=== PATIENT | female | born 1940 | race Caucasian/White ===

== ENCOUNTER 2016-12-06 09:24 | Observation (INO) ==
--- NOTE | 2016-12-06 09:31 | Emergency Department Note ---
Disposition Clinical Impression: Heart palpitations Chest pain Qualifiers: Chest pain type: precordial pain Qualified Code(s): R07.2 - Precordial pain Disposition: Admitted As Inpatient Condition: Good Referrals: Chandrakant Devi DO [Primary Care Provider] - Forms: ED Satisfaction Letter Chest Pain HPI - General Chief Complaint: ED Chest Pain Stated Complaint: chest pressure with SOB Time Seen by Provider: 12/06/16 09:29 Source: patient, EMS Mode of arrival: EMS Limitations: no limitations Vital Signs Reviewed: Yes Nursing Notes Reviewed: Yes - History of Present Illness HPI Narrative: Patient states she had onset of an ache in her chest with palpitations this morning approximately about 6:30. She states her chest discomfort was an ache that did not radiate. She did report some slight nausea and no diaphoresis or radiation of discomfort. She denies history of similar pain in the past. She states it went away with application of oxygen and administration of aspirin by EMS. She denies any lower extremity swelling, immobilization or injury. She denies that anything seemed to make this better or worse. She states she felt normal going to bed last night and that she has had normal activity and normal medications. She does have a history of a pacemaker and has had history of coronary artery disease. Pt complaint: chest pain, other (Palpitations) Onset (ago): hour(s) Time: 07:30 Duration: now resolved Onset: during rest Pain Location: left chest Severity: moderate Severity scale (1-10): 0 Quality: aching Pain Radiation: none Improves with: nothing Worsens with: nothing Associated symptoms: Reports: nausea ("Slight"), dyspnea, palpitations. Denies : vomiting, diaphoresis, syncope, fever, cough, leg swelling Treatments prior to arrival chest pain: aspirin, oxygen - Related Data Home Medications Medication Instructions Recorded Confirmed Metoprolol [Lopressor] 25 mg PO BID 01/11/15 12/06/16 Budesonide/Formoterol 160/4.5 1 puff IH BIDR PRN 04/06/15 12/06/16 [Symbicort] Clopidogrel [Plavix] 75 mg PO DAILY 04/06/15 12/06/16 hydroCHLOROthiazide 25 mg PO DAILY 04/06/15 12/06/16 [Hydrochlorothiazide] Amlodipine Besylate 10 mg PO DAILY 10/31/15 12/06/16 Ginkgo Biloba 60 mg PO DAILY 10/31/15 12/06/16 Oxybutynin [Ditropan] 5 mg PO BID 10/31/15 12/06/16 Albuterol Sulfate [Albuterol 1 puff IH QID PRN 12/21/15 12/06/16 Inhaler] Naproxen [Naprosyn] 500 mg PO BID PRN 12/06/16 12/06/16 Previous Rx's Medication Instructions Recorded Aspirin 162 mg PO DAILY 365 Days 11/01/15 Atorvastatin [Lipitor] 40 mg PO HS #30 tablet 11/01/15 Isosorbide MONOnitrate (24 HR) 120 mg PO DAILY 365 Days 11/01/15 [Imdur] Nitroglycerin [Nitrostat] 0.4 mg SL Q5M PRN #1 vial 11/01/15 Allergies Allergy/AdvReac Type Severity Reaction Status Date / Time lisinopril Allergy Cough Verified 12/06/16 09:25 All systems ED: reviewed and negative except as stated. 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 Absent: scleral icterus, conjunctival injection - ENT ENT exam: normal exam, normal oropharynx, mucous membranes moist - Neck Neck exam: Present: normal inspection, full ROM, trachea midline - Chest Chest inspection: Present: normal inspection, symmetric chest wall rise - Respiratory Respiratory exam: Present: normal lung sounds bilaterally. Absent: respiratory distress, wheezes, prolonged expiratory phase - Cardiovascular Cardiovascular exam: Present: regular rate, normal rhythm, normal heart sounds. Absent: tachycardia - Abdominal Exam Abdominal exam: Present: soft, Non-Tender, normal bowel sounds. Absent: tenderness, distention, guarding, rebound, rigidity - Extremities Exam Extremities exam: Present: normal inspection, full ROM, normal capillary refill. Absent: tenderness, pedal edema - Expanded Lower Extremity Exam Neurovascular/Tendon exam: Present: normal capillary refill. Absent: motor deficit, sensory deficit, tendon deficit Gait: observed and normal - Back Exam Back exam: Present: normal inspection, full ROM. Absent: tenderness, CVA tenderness (R), CVA tenderness (L), vertebral tenderness - Neurological Exam Neurological exam: Present: alert, oriented X3 - Psychiatric Psychiatric exam: Present: normal affect, normal mood. Absent: agitated, anxious - Skin Skin exam: Present: warm, dry, intact, normal color. Absent: rash, diaphoresis , pallor Course Course Narrative: 1052: Patient's presentation and evaluation have been discussed with Dr. Beal. He would like us to consult to [facility] cardiology as the recommendations for interrogation of the pacer. If they feel that these done more urgently than he would request for transfer to [facility]. If it can be done electively later, he is comfortable observing care here with serial troponins and monitoring. 1131: Dr. Disla of [facility] cardiology has returned page. She feels the patient can be observed at our facility with serial troponins. She states that the pacer could be checked in the office of the troponins are negative but she would recommend contacting the device company, [employer], at to see if this can be interrogated today. We have contacted to the company and they will be able to evaluate the pacer later this afternoon. The patient will be admitted therefore to this facility. Vital Signs Temperature 97.3 F L 12/06/16 09:26 Pulse Rate 60 12/06/16 09:26 Respiratory Rate 21 12/06/16 09:26 Blood Pressure 151/82 12/06/16 09:26 O2 Sat by Pulse Oximetry 97 12/06/16 09:26 Temperature 97.3 F L 12/06/16 09:28 Pulse Rate 60 12/06/16 11:37 Respiratory Rate 17 12/06/16 11:37 Blood Pressure 139/67 12/06/16 11:37 O2 Sat by Pulse Oximetry 99 12/06/16 11:37 Oxygen Delivery Oxygen Delivery Nasal Cannula Chest Pain - Differential Diagnosis Likely: atypical chest pain, chest pain (Dysrhythmia) - Medical Records Medical records reviewed: Yes I reviewed the patient's medical records. - Lab Data Lab results reviewed: Yes I reviewed the patient's lab results. Result diagrams: 12/06/16 09:40 12/06/16 09:40 Lab Results 12/06/16 12/06/16 12/06/16 Range/Units 09:40 09:40 09:40 WBC 6.0 (4.3-11.1) K/mcL RBC 5.16 H (3.82-4.97) M/mcL Hgb 15.3 (11.5-15.4) g/dL Hct 43.2 (35.3-44.9) % MCV 83.7 (83.0-100.0) fL MCH 29.7 (28.0-33.3) pg MCHC 35.4 (31.6-35.5) g/dL RDW 12.5 (11.5-14.5) % Plt Count 194 (140-400) K/mcL MPV 9.1 L (9.4-12.4) fL Immature Gran % 0.3 (0-4) % Seg Neutrophils % 47.9 % Lymphocytes % 41.7 % Monocytes % 5.7 % Eosinophils % 3.2 % Basophils % 1.2 % Neutrophils # 2.9 (1.6-8.9) K/mcL Lymphocytes # 2.5 (0.6-4.6) K/mcL Monocytes # 0.3 (0.0-1.3) K/mcL Eosinophils # 0.2 (0.0-0.6) K/mcL Basophils # 0.1 (0.0-0.2) K/mcL PT 11.3 (9.4-12.1) Seconds INR 1.1 APTT 29.9 (26.0-36.0) Seconds Sodium (136-145) mEq/L Potassium (3.5-4.5) mEq/L Chloride (98-109) mEq/L Carbon Dioxide (19-29) mEq/L BUN (7-20) mg/dL Creatinine (0.57-1.11) mg/dL Est GFR ( Amer) (> 60) Est GFR (Non-Af Amer) (> 60) BUN/Creatinine Ratio (6-26) Glucose (70-99) mg/dL Calculated Osmolality (280-300) Calcium (8.6-10.8) mg/dL Troponin I (0-0.03) ng/mL B-Natriuretic Peptide 134 H (0-100) pg/mL 12/06/16 12/06/16 Range/Units 09:40 09:40 WBC (4.3-11.1) K/mcL RBC (3.82-4.97) M/mcL Hgb (11.5-15.4) g/dL Hct (35.3-44.9) % MCV (83.0-100.0) fL MCH (28.0-33.3) pg MCHC (31.6-35.5) g/dL RDW (11.5-14.5) % Plt Count (140-400) K/mcL MPV (9.4-12.4) fL Immature Gran % (0-4) % Seg Neutrophils % % Lymphocytes % % Monocytes % % Eosinophils % % Basophils % % Neutrophils # (1.6-8.9) K/mcL Lymphocytes # (0.6-4.6) K/mcL Monocytes # (0.0-1.3) K/mcL Eosinophils # (0.0-0.6) K/mcL Basophils # (0.0-0.2) K/mcL PT (9.4-12.1) Seconds INR APTT (26.0-36.0) Seconds Sodium 140 (136-145) mEq/L Potassium 3.1 L (3.5-4.5) mEq/L Chloride 100 (98-109) mEq/L Carbon Dioxide 26 (19-29) mEq/L BUN 12 (7-20) mg/dL Creatinine 0.86 (0.57-1.11) mg/dL Est GFR ( Amer) > 60 (> 60) Est GFR (Non-Af Amer) > 60 (> 60) BUN/Creatinine Ratio 14 (6-26) Glucose 141 H (70-99) mg/dL Calculated Osmolality 292 (280-300) Calcium 9.5 (8.6-10.8) mg/dL Troponin I 0.01 (0-0.03) ng/mL B-Natriuretic Peptide (0-100) pg/mL - Radiology Data Radiology results reviewed: Yes I reviewed the patient's radiology results. Single view chest x-ray is performed. This does not demonstrate evidence for infiltrate, effusion, pneumothorax, foreign body or heart failure. The cardiac silhouette is only enlarged. Pacer and pacer wires appear to be intact. I do not see abnormality to the osseous structures of the chest. This is on my interpretation. Impressions Chest X-Ray 12/06/16 09:29 IMPRESSION: Stable borderline cardiomegaly. Stable minimal pulmonary vascular congestion. D/ / Brooks Sands MD / Brooks Sands MD Interpreting Provider: Brooks Sands MD - EKG Data EKG attestation: Yes I reviewed and interpreted this EKG. EKG shows normal: intervals Rate: normal (60) Interpretation: no acute changes (Paced rhythm, atrial ventricular) Heart Score - Score History: Moderately Suspicious EKG: Normal Age: Greater than 65 Risk Factors: Equal/Greater than 3 risk factor or history of atherosclerotic disease Troponin: Less than normal limit HEART Score Total: 5
[2016-12-06 09:50] LABS: Basophils # 0.1 K/mcL (0.0-0.2); Basophils % 1.2 %; Eosinophils # 0.2 K/mcL (0.0-0.6); Eosinophils % 3.2 %; Hematocrit 43.2 % (35.3-44.9); Hemoglobin 15.3 g/dL (11.5-15.4); Immature Granulocytes % 0.3 % (0-4); Lymphocytes # 2.5 K/mcL (0.6-4.6); Lymphocytes % 41.7 %; Mean Corpuscular HGB Conc 35.4 g/dL (31.6-35.5); Mean Corpuscular Hemoglobin 29.7 pg (28.0-33.3); Mean Corpuscular Volume 83.7 fL (83.0-100.0); Mean Platelet Volume 9.1 fL (9.4-12.4); Monocytes # 0.3 K/mcL (0.0-1.3); Monocytes % 5.7 %; Neutrophils # 2.9 K/mcL (1.6-8.9); Platelet Count 194 K/mcL (140-400); Red Blood Count 5.16 M/mcL (3.82-4.97); Red Cell Distribution Width 12.5 % (11.5-14.5); Segmented Neutrophils % 47.9 %
[2016-12-06 09:57] LABS: INR 1.1; Prothrombin Time 11.3 Seconds (9.4-12.1)
[2016-12-06 10:00] LABS: Activated Partial Thrombo Time 29.9 Seconds (26.0-36.0)
[2016-12-06 10:06] LABS: BUN/Creatinine Ratio 14 (6-26); Blood Urea Nitrogen 12 mg/dL (7-20); Calcium 9.5 mg/dL (8.6-10.8); Carbon Dioxide 26 mEq/L (19-29); Chloride 100 mEq/L (98-109); Glucose 141 mg/dL (70-99); Osmolality,Calculated 292 (280-300); Potassium 3.1 mEq/L (3.5-4.5); Sodium 140 mEq/L (136-145); eGFR For African Americans > 60 (> 60); eGFR For Non-African Americans > 60 (> 60)
--- NOTE | 2016-12-06 13:17 | Electrocardiograph Report ---
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
[2016-12-06] MEDS ORDERED: Nitroglycerin 0.4 MG TAB.SUBL SL PRN (13:28)
[2016-12-06] MEDS ORDERED: Naloxone 0.4 MG/ML INJ IVP PRN (13:28)
[2016-12-06] MEDS ORDERED: Ondansetron 4 MG/2 ML VIAL IVP PRN (13:28)
[2016-12-06] MEDS ORDERED: Budesonide/Formoterol 160/4.5 MDI IH PRN (13:28)
[2016-12-06 14:03] VITALS: BP 158/79
--- NOTE | 2016-12-06 15:40 | Internal Med History&Physical ---
Date of Encounter: 12/06/16 Time of Encounter: 15:05 Assessment and Plan (1) Chest pain Current visit: No Status: Acute Repeat cardiac enzymes showed a rise in troponin to 0.05. Patient still having mild chest discomfort. She is agreeable to transfer to [place] for further evaluation. Qualifiers: Chest pain type: chest pain due to myocardial ischemia Qualified Code(s): I20.9 - Angina pectoris, unspecified Internal Medicine - H&P: HPI Chief complaint: Chest pain Admitted From: Home Plans for Post Hospital Care: Home History of present illness: Ms. Valdes is a 75 year old female who states she developed discomfort in her chest approximately 0630 after rising while at leisure in her home. She describes it as a pressure sensation in her left chest that seemed to radiate toward her neck. Her daughter came to the house approximated 0800 and gave her a nitroglycerin pill which seemed to relieve the pain. The squad had already been called by the patient and she received aspirin by squad members. She was brought to emergency room and evaluated and admitted to [facility] for ongoing care needs. She states she still having some discomfort in her chest at the present time. She rates it a level 1-2/10 at present. She has known ASHD with three-vessel CABG in 1992. She had 4 stents placed at [facility] December/January 2016. She has not had discomfort since the stents were placed. Her last follow-up at [place] was August 2016. She has not had a stress test since stent placement. She has not had known [place] heart failure DVT or pulmonary embolus. She had a pacemaker placed 2006. She has a history of hypertension. LVEF on April 2015 heart catheter was 65%. Past Med Surg Social Fam HX - Past Medical History Medical history: arthritis, COPD, coronary artery disease, dementia, hypertension, thyroid disease Psychiatric history: no psych history - Past Surgical History Surgical History: coronary bypass (CABG), knee replacement, pacemaker/AICD - Social History Smoking Status: Never smoker Smokeless Tobacco Status: No Alcohol use: none Drug use: none - Family History Son Living Status: Hx Family Cardiac Disorders: Yes Internal Medicine - H&P: Meds Metoprolol [Lopressor] 25 mg PO BID 01/11/15 [History] Budesonide/Formoterol 160/4.5 [Symbicort] 1 puff IH BIDR PRN 04/06/15 [History] Clopidogrel [Plavix] 75 mg PO DAILY 04/06/15 [History] hydroCHLOROthiazide [Hydrochlorothiazide] 25 mg PO DAILY 04/06/15 [History] Amlodipine Besylate 10 mg PO DAILY 10/31/15 [History] Ginkgo Biloba 60 mg PO DAILY 10/31/15 [History] Oxybutynin [Ditropan] 5 mg PO BID 10/31/15 [History] Aspirin 162 mg PO DAILY 365 Days 11/01/15 [Rx] Atorvastatin [Lipitor] 40 mg PO HS #30 tablet 11/01/15 [Rx] Isosorbide MONOnitrate (24 HR) [Imdur] 120 mg PO DAILY 365 Days 11/01/15 [Rx] Nitroglycerin [Nitrostat] 0.4 mg SL Q5M PRN #1 vial 11/01/15 [Rx] Albuterol Sulfate [Albuterol Inhaler] 1 puff IH QID PRN 12/21/15 [History] Naproxen [Naprosyn] 500 mg PO BID PRN 12/06/16 [History] Allergies lisinopril Allergy (Verified 12/06/16 09:25) Cough All Systems PM: A 10-system review of systems was performed and is negative for pertinent findings except as documented above in the HPI. Review of systems: Gen.: Her weight has increased from 68 kg at the October 2015 hospitalization a 74.843 kg now. Cardiovascular: As per history of present illness Respiratory: She smoked from her late 20s into her 30s. She has a diagnosis of COPD and has been prescribed oxygen to wear at bedtime. She has been diagnosed with ERIKA but does not wear CPAP/BiPAP. GI: There is no known disorder with her liver gallbladder or exocrine pancreas. : She has OAB. She she had acute renal insufficiency in the past which has resolved. Neurologic: She has a diagnosis of dementia but no known large distribution strokes or seizures. Endocrine: She has hypothyroidism and hyperlipidemia but no known diabetes Hematology/oncology: She has no known blood disorders cancers or anemia. Psychiatric: She has no known anxiety depression or other mental health issues. [place] skeletal: She has DJD but no known gout or osteoporosis. - Constitutional Vitals: Temp Pulse Resp BP Pulse Ox 97.5 F L 63 18 158/79 98 12/06/16 13:45 12/06/16 13:45 12/06/16 13:45 12/06/16 13:45 12/06/16 13:45 Exam: Gen.: She is a well-developed well-nourished female who appears in no severe distress at present time HEENT: Head is atraumatic and normocephalic. Eyes: EOMI. There is no scleral icterus. Mouth: Mucosa is moist. Neck: Supple and nontender. There is no thyromegaly or adenopathy noted. Heart: Regular without murmurs gallops or ectopics Lungs: No wheezes or crackles are heard. Abdomen: Soft and nontender. No masses or guarding are noted. Extremities: There is no cyanosis edema or clubbing noted. Dorsalis pedis and posterior tibial pulses are trace palpable bilaterally. Neurologic: Mental status: She is talkative and seems to be a fair to good historian. Cranial nerves: Smile is symmetric. Forehead wrinkles bilaterally. Tongue protrudes midline. EOMI. Motor: There is no pronator drift. Cerebellar: Finger to nose is intact bilaterally. Skin: Warm and dry Internal Med - H&P Results - Labs CBC & Chem 7: 12/06/16 09:40 12/06/16 09:40 Labs: Cardiac Enzymes 12/06/16 Range/Units 13:42 Troponin I 0.05 H* (0-0.03) ng/mL
--- NOTE | 2016-12-06 15:48 | Discharge Summary ---
Date of Encounter: 12/06/16 Time of Encounter: 15:05 - Discharge Diagnosis (1) Chest pain Priority: Primary Status: Acute Qualifiers: Chest pain type: chest pain due to myocardial ischemia Qualified Code(s): I20.9 - Angina pectoris, unspecified - Discharge Medications Home Medications: Metoprolol [Lopressor] 25 mg PO BID 01/11/15 [History] Budesonide/Formoterol 160/4.5 [Symbicort] 1 puff IH BIDR PRN 04/06/15 [History] Clopidogrel [Plavix] 75 mg PO DAILY 04/06/15 [History] hydroCHLOROthiazide [Hydrochlorothiazide] 25 mg PO DAILY 04/06/15 [History] Amlodipine Besylate 10 mg PO DAILY 10/31/15 [History] Ginkgo Biloba 60 mg PO DAILY 10/31/15 [History] Oxybutynin [Ditropan] 5 mg PO BID 10/31/15 [History] Aspirin 162 mg PO DAILY 365 Days 11/01/15 [Rx] Atorvastatin [Lipitor] 40 mg PO HS #30 tablet 11/01/15 [Rx] Isosorbide MONOnitrate (24 HR) [Imdur] 120 mg PO DAILY 365 Days 11/01/15 [Rx] Nitroglycerin [Nitrostat] 0.4 mg SL Q5M PRN #1 vial 11/01/15 [Rx] Albuterol Sulfate [Albuterol Inhaler] 1 puff IH QID PRN 12/21/15 [History] Naproxen [Naprosyn] 500 mg PO BID PRN 12/06/16 [History] Allergies/Adverse Reactions: Allergies lisinopril Allergy (Verified 12/06/16 09:25) Cough Date of admission: 12/06/16 12:15 Primary care physician: Chandrakant Devi DO - Patient Status Disposition: Transfer Other Condition: Good - Discharge Instructions Hospital course: Ms. Valdes is a 75 year old female who states she developed discomfort in her chest approximately 0630 after rising while at leisure in her home. She describes it as a pressure sensation in her left chest that seemed to radiate toward her neck. Her daughter came to the house approximated 0800 and gave her a nitroglycerin pill which seemed to relieve the pain. The squad had already been called by the patient and she received aspirin by squad members. She was brought to emergency room and evaluated and admitted to [facility] for ongoing care needs. Initial orders were written by the emergency room physician. I saw her the afternoon of December 06 and performed a history and physical. When I saw her her she stated she was still having some discomfort in her chest. Her troponin abby to 0.05 on repeat labs. I told the patient she needed further cardiac evaluation with probable repeat heart cath. She was agreeable to transfer to [place] for further evaluation. - Time Spent with Patient Total time spent providing and/or coordinating discharge services: - Constitutional Vitals: Temp Pulse Resp BP Pulse Ox 97.5 F L 63 18 158/79 98 12/06/16 13:45 12/06/16 13:45 12/06/16 13:45 12/06/16 13:45 12/06/16 13:45
[2016-12-06] MEDS ORDERED: *HR* Heparin 5,000 UNIT/ML VIAL IVP ONE (15:55)
[2016-12-06] MEDS ORDERED: *HR* Heparin 5,000 UNIT/ML VIAL IVP PRN ×2 (15:55)
[2016-12-06] MEDS ORDERED: Heparin 25,000 UNIT/500 ML D5W 25,000 UNIT/500 ML MLS IVC SCH (16:00)
[2016-12-06] MEDS ORDERED: Acetaminophen 325 MG TABLET PO PRN (18:00)
[2016-12-07] MEDS ORDERED: hydroCHLOROthiazide 25 MG TABLET PO SCH (09:00)
[2016-12-07] MEDS ORDERED: Aspirin 81 MG TAB.CHEW PO SCH (09:00)
[2016-12-07] MEDS ORDERED: amLODIPine 5 MG TABLET PO SCH (09:00)
[2016-12-07] MEDS ORDERED: Isosorbide MONOnitrate (24 HR) 60 MG TAB.ER.24H PO SCH (09:00)
== END 2016-12-06 17:25 | disposition other institution (70) ==
LOC: INPPIK 09:24 → EMEROOPIK 09:24 → INPPIK 13:04
PROVIDERS: ADMIT Emergency Medicine; ATTEND Internal Medicine

== ENCOUNTER 2019-05-07 11:28 | Inpatient (IN) ==
[2019-05-07 12:34] LABS: Basophils # 0.1 K/mcL (0.0-0.2); Basophils % 0.9 %; Eosinophils # 0.1 K/mcL (0.0-0.6); Eosinophils % 1.3 %; Hematocrit 41.4 % (35.3-44.9); Hemoglobin 14.9 g/dL (11.5-15.4); Immature Granulocytes % 0.3 % (0-4); Lymphocytes # 2.1 K/mcL (0.6-4.6); Lymphocytes % 30.3 %; Mean Corpuscular Hemoglobin 29.6 pg (28.0-33.3); Mean Corpuscular Volume 82.1 fL (83.0-100.0); Mean Platelet Volume 9.4 fL (9.4-12.4); Monocytes # 0.6 K/mcL (0.0-1.3); Monocytes % 9.2 %; Neutrophils # 3.9 K/mcL (1.6-8.9); Platelet Count 249 K/mcL (140-400); Red Blood Count 5.04 M/mcL (3.82-4.97); Red Cell Distribution Width 12.7 % (11.5-14.5); White Blood Count 6.8 K/mcL (4.3-11.1)
[2019-05-07 12:40] LABS: INR 1.2; Prothrombin Time 13.5 Seconds (9.4-12.1)
[2019-05-07 13:03] LABS: Alanine Aminotransferase 10 Units/L (7-52); Albumin 3.9 g/dL (3.5-5.7); Albumin/Globulin Ratio 1.3 (1.1-2.2); Alkaline Phosphatase 67 Units/L (34-104); Aspartate Amino Transferase 18 Units/L (13-39); BUN/Creatinine Ratio 14 (6-26); Blood Urea Nitrogen 11 mg/dL (8-23); Calcium 9.1 mg/dL (8.6-10.3); Carbon Dioxide 34 mEq/L (23-29); Chloride 92 mEq/L (98-107); Globulin 2.9 g/dL (2.4-3.5); Glucose 100 mg/dL (70-105); Osmolality,Calculated 283 (280-300); Potassium 2.2 mEq/L (3.5-5.1); Sodium 137 mEq/L (136-145); Total Protein 6.8 g/dL (6.4-8.9); eGFR For African Americans > 60 (> 60); eGFR For Non-African Americans > 60 (> 60)
[2019-05-07] MEDS ORDERED: Potassium Effervescent 25 MEQ TABLET.EFF PO ONE (13:06)
[2019-05-07] MEDS ORDERED: 0.9 % Sodium Chloride 1,000 ML IVC STA (13:18)
[2019-05-07] MEDS ORDERED: Naloxone 0.4 MG/ML INJ IVP PRN (16:20)
[2019-05-07] MEDS ORDERED: Ondansetron ODT 4 MG TAB.RAPDIS SL PRN (16:20)
[2019-05-07 18:05] LABS: Hemoglobin 12.9 g/dL (11.5-15.4)
[2019-05-07 18:51] LABS: BUN/Creatinine Ratio 16 (6-26); Blood Urea Nitrogen 11 mg/dL (8-23); Calcium 8.4 mg/dL (8.6-10.3); Carbon Dioxide 33 mEq/L (23-29); Chloride 94 mEq/L (98-107); Glucose 93 mg/dL (70-105); Osmolality,Calculated 281 (280-300); Potassium 2.7 mEq/L (3.5-5.1); Sodium 136 mEq/L (136-145); eGFR For African Americans > 60 (> 60); eGFR For Non-African Americans > 60 (> 60)
[2019-05-07] MEDS: 0.9 % Sodium Chloride 1,000 ML IVC SCH ×2 (22:58→23:32)
[2019-05-08 02:02] LABS: Hematocrit 35.8 % (35.3-44.9); Hemoglobin 12.7 g/dL (11.5-15.4)
[2019-05-08 06:49] LABS: Basophils # 0.1 K/mcL (0.0-0.2); Basophils % 1.1 %; Eosinophils # 0.2 K/mcL (0.0-0.6); Eosinophils % 2.8 %; Hematocrit 37.2 % (35.3-44.9); Hemoglobin 13.1 g/dL (11.5-15.4); Immature Granulocytes % 0.2 % (0-4); Lymphocytes # 2.1 K/mcL (0.6-4.6); Lymphocytes % 36.1 %; Mean Corpuscular HGB Conc 35.2 g/dL (31.6-35.5); Mean Corpuscular Hemoglobin 29.4 pg (28.0-33.3); Mean Corpuscular Volume 83.4 fL (83.0-100.0); Mean Platelet Volume 9.6 fL (9.4-12.4); Monocytes # 0.6 K/mcL (0.0-1.3); Neutrophils # 2.9 K/mcL (1.6-8.9); Platelet Count 217 K/mcL (140-400); Red Blood Count 4.46 M/mcL (3.82-4.97); Red Cell Distribution Width 12.9 % (11.5-14.5); Segmented Neutrophils % 49.8 %; White Blood Count 5.7 K/mcL (4.3-11.1)
[2019-05-08 06:57] LABS: BUN/Creatinine Ratio 11 (6-26); Blood Urea Nitrogen 7 mg/dL (8-23); Calcium 8.3 mg/dL (8.6-10.3); Carbon Dioxide 32 mEq/L (23-29); Chloride 98 mEq/L (98-107); Glucose 94 mg/dL (70-105); Osmolality,Calculated 284 (280-300); Potassium 2.6 mEq/L (3.5-5.1); Sodium 138 mEq/L (136-145); eGFR For African Americans > 60 (> 60); eGFR For Non-African Americans > 60 (> 60)
[2019-05-08] MEDS: amLODIPine 5 MG TABLET PO SCH (09:08)
[2019-05-08] MEDS: Aspirin Enteric Coated 81 MG Tablet PO SCH (09:09)
[2019-05-08] MEDS: hydroCHLOROthiazide 25 MG TABLET PO SCH (09:09)
[2019-05-08] MEDS: Isosorbide MONOnitrate (24 HR) 60 MG TAB.ER.24H PO SCH (09:22)
[2019-05-08 11:53] LABS: Hematocrit 38.2 % (35.3-44.9); Hemoglobin 13.6 g/dL (11.5-15.4)
[2019-05-08] MEDS ORDERED: Potassium Effervescent 25 MEQ TABLET.EFF PO ONE (13:00)
[2019-05-08] MEDS ORDERED: *HR* OxyCODONE/APAP 5/325 TABLET PO ONE (16:44)
[2019-05-08] MEDS: Potassium Chloride Elixir 20 MEQ/15 ML UDC PO SCH (22:20)
[2019-05-09 06:59] LABS: Basophils % 0.4 %; Eosinophils # 0.2 K/mcL (0.0-0.6); Eosinophils % 2.6 %; Hematocrit 39.5 % (35.3-44.9); Hemoglobin 13.8 g/dL (11.5-15.4); Immature Granulocytes % 0.3 % (0-4); Lymphocytes # 2.2 K/mcL (0.6-4.6); Lymphocytes % 31.9 %; Mean Corpuscular HGB Conc 34.9 g/dL (31.6-35.5); Mean Corpuscular Hemoglobin 29.6 pg (28.0-33.3); Mean Corpuscular Volume 84.8 fL (83.0-100.0); Mean Platelet Volume 9.6 fL (9.4-12.4); Monocytes # 0.6 K/mcL (0.0-1.3); Monocytes % 8.7 %; Neutrophils # 3.9 K/mcL (1.6-8.9); Platelet Count 192 K/mcL (140-400); Red Blood Count 4.66 M/mcL (3.82-4.97); Red Cell Distribution Width 13.2 % (11.5-14.5); Segmented Neutrophils % 56.1 %; White Blood Count 6.9 K/mcL (4.3-11.1)
[2019-05-09 07:24] LABS: BUN/Creatinine Ratio 8 (6-26); Blood Urea Nitrogen 5 mg/dL (8-23); Calcium 8.5 mg/dL (8.6-10.3); Carbon Dioxide 33 mEq/L (23-29); Chloride 101 mEq/L (98-107); Glucose 84 mg/dL (70-105); Osmolality,Calculated 286 (280-300); Sodium 140 mEq/L (136-145); eGFR For African Americans > 60 (> 60); eGFR For Non-African Americans > 60 (> 60)
[2019-05-09 08:15] VITALS: BP 117/70
[2019-05-09] MEDS: Aspirin Enteric Coated 81 MG Tablet PO SCH (09:08)
[2019-05-09] MEDS: Isosorbide MONOnitrate (24 HR) 60 MG TAB.ER.24H PO SCH (09:08)
[2019-05-09] MEDS: Potassium Chloride Elixir 20 MEQ/15 ML UDC PO SCH (09:08)
[2019-05-09] MEDS: hydroCHLOROthiazide 25 MG TABLET PO SCH (09:08)
[2019-05-09] MEDS: amLODIPine 5 MG TABLET PO SCH (09:09)
== END 2019-05-09 15:40 | disposition home or self-care (01) | DRG 379 ==
LOC: EMEROOPIK 11:28 → INPPIK 11:28
PROVIDERS: ADMIT Family Medicine; ATTEND Family Medicine

== ENCOUNTER 2019-07-26 13:20 | Inpatient (IN) ==
[2019-07-26] MEDS ORDERED: Aspirin 81 MG TAB.CHEW PO ONE (13:54)
[2019-07-26] MEDS ORDERED: 0.9 % Sodium Chloride 1,000 ML IV ONE (13:54)
[2019-07-26 14:16] LABS: Eosinophils # 0.1 K/mcL (0.0-0.6); Eosinophils % 1.5 %; Hematocrit 39.1 % (35.3-44.9); Hemoglobin 13.6 g/dL (11.5-15.4); Lymphocytes # 1.8 K/mcL (0.6-4.6); Lymphocytes % 44.5 %; Mean Corpuscular HGB Conc 34.8 g/dL (31.6-35.5); Mean Corpuscular Hemoglobin 30.4 pg (28.0-33.3); Mean Corpuscular Volume 87.5 fL (83.0-100.0); Mean Platelet Volume 9.5 fL (9.4-12.4); Monocytes # 0.1 K/mcL (0.0-1.3); Monocytes % 3.4 %; Platelet Count 143 K/mcL (140-400); Red Blood Count 4.47 M/mcL (3.82-4.97); Red Cell Distribution Width 12.3 % (11.5-14.5); Segmented Neutrophils % 49.6 %; White Blood Count 4.1 K/mcL (4.3-11.1)
[2019-07-26 14:23] LABS: Prothrombin Time 11.8 Seconds (9.4-12.1)
[2019-07-26 14:31] LABS: Alanine Aminotransferase 21 Units/L (7-52); Albumin/Globulin Ratio 1.5 (1.1-2.2); Alkaline Phosphatase 74 Units/L (34-104); Aspartate Amino Transferase 24 Units/L (13-39); BUN/Creatinine Ratio 13 (6-26); Bilirubin,Total 0.4 mg/dL (0.3-1.0); Blood Urea Nitrogen 11 mg/dL (8-23); Calcium 9.1 mg/dL (8.6-10.3); Carbon Dioxide 27 mEq/L (23-29); Chloride 97 mEq/L (98-107); Globulin 2.7 g/dL (2.4-3.5); Glucose 145 mg/dL (70-105); Magnesium 1.9 mg/dL (1.6-2.6); Osmolality,Calculated 286 (280-300); Potassium 2.6 mEq/L (3.5-5.1); Sodium 137 mEq/L (136-145); Total Protein 6.7 g/dL (6.4-8.9); eGFR For African Americans > 60 (> 60); eGFR For Non-African Americans > 60 (> 60)
[2019-07-26 14:34] LABS: Troponin I < 0.03 ng/mL (< 0.04)
[2019-07-26 14:45] LABS: Bilirubin,Urine Negative (Negative); Blood,Urine Negative (Negative); Clarity,Urine Clear (Clear); Color,Urine Yellow (Yellow); Glucose,Urine (UA) Normal (Normal); Ketones,Urine Negative (Negative); Leukocyte Esterase,Urine Negative (Negative); Nitrite,Urine Negative (Negative); Protein,Urine Negative (Neg-Trace); Specific Gravity,Urine 1.015 (1.010-1.025); Urobilinogen,Urine Normal (Normal)
[2019-07-26] MEDS ORDERED: Isovue-370 500 ML BOTTLE IVP ONE (15:16)
[2019-07-26] MEDS ORDERED: Ondansetron 4 MG/2 ML VIAL IVP PRN (16:48)
[2019-07-26] MEDS ORDERED: Azithromycin 500 MG in 0.9 % Sodium Chloride 250 ML IVPB ONE ×2 (16:48→20:00)
[2019-07-26] MEDS ORDERED: Naloxone 0.4 MG/ML INJ IVP PRN (16:48)
[2019-07-26] MEDS ORDERED: methylPREDNISolone 125 MG/2 ML VIAL IVP ONE (16:58)
[2019-07-26] MEDS ORDERED: Albuterol 2.5 MG/3 ML NEBULIZER IH PRN (16:58)
[2019-07-26] MEDS ORDERED: Potassium Chloride Elixir 20 MEQ/15 ML UDC PO ONE (17:12)
[2019-07-26] MEDS: Ipratropium/Albuterol Neb 3 ML IH SCH ×2 (18:28→21:44)
[2019-07-26] MEDS: 0.9 % Sodium Chloride 1,000 ML IV SCH (18:54)
[2019-07-26] MEDS: cefTRIAXone 2,000 MG in Water for inj. (sterile) 20 ML IVP SCH (18:55)
[2019-07-26] MEDS: 0.9 % Sodium Chloride 1,000 ML IVC SCH (19:05)
[2019-07-26] MEDS: MethylPREDNISolone 40 MG/ML VIAL IVP SCH (23:41)
[2019-07-27] MEDS: 0.9 % Sodium Chloride 1,000 ML IV SCH ×2 (02:33→17:59)
[2019-07-27] MEDS: Ipratropium/Albuterol Neb 3 ML IH SCH ×4 (04:15→23:21)
[2019-07-27] MEDS: MethylPREDNISolone 40 MG/ML VIAL IVP SCH ×4 (05:11→23:30)
[2019-07-27 05:18] LABS: Hematocrit 37.6 % (35.3-44.9); Hemoglobin 12.9 g/dL (11.5-15.4); Immature Granulocytes % 0.2 % (0-4); Lymphocytes # 0.5 K/mcL (0.6-4.6); Lymphocytes % 13.2 %; Mean Corpuscular HGB Conc 34.3 g/dL (31.6-35.5); Mean Corpuscular Hemoglobin 30.2 pg (28.0-33.3); Mean Corpuscular Volume 88.1 fL (83.0-100.0); Mean Platelet Volume 9.3 fL (9.4-12.4); Monocytes # 0.1 K/mcL (0.0-1.3); Monocytes % 1.5 %; Neutrophils # 3.5 K/mcL (1.6-8.9); Platelet Count 143 K/mcL (140-400); Red Blood Count 4.27 M/mcL (3.82-4.97); Red Cell Distribution Width 12.5 % (11.5-14.5); Segmented Neutrophils % 85.1 %; White Blood Count 4.1 K/mcL (4.3-11.1)
[2019-07-27 05:46] LABS: BUN/Creatinine Ratio 15 (6-26); Blood Urea Nitrogen 10 mg/dL (8-23); Calcium 8.6 mg/dL (8.6-10.3); Carbon Dioxide 22 mEq/L (23-29); Chloride 107 mEq/L (98-107); Glucose 158 mg/dL (70-105); Magnesium 1.7 mg/dL (1.6-2.6); Osmolality,Calculated 292 (280-300); Potassium 3.8 mEq/L (3.5-5.1); Sodium 140 mEq/L (136-145); eGFR For African Americans > 60 (> 60); eGFR For Non-African Americans > 60 (> 60)
[2019-07-27] MEDS ORDERED: 0.9 % Sodium Chloride 1,000 ML IV ONE (07:41)
[2019-07-27] MEDS ORDERED: Potassium Chloride Elixir 20 MEQ/15 ML UDC PO ONE (07:44)
[2019-07-27] MEDS: amLODIPine 5 MG TABLET PO SCH (09:22)
[2019-07-27] MEDS: Isosorbide MONOnitrate (24 HR) 60 MG TAB.ER.24H PO SCH (09:22)
[2019-07-27] MEDS: Aspirin Enteric Coated 81 MG Tablet PO SCH (09:22)
[2019-07-27] MEDS: cefTRIAXone 2,000 MG in Water for inj. (sterile) 20 ML IVP SCH (18:00)
[2019-07-27] MEDS ORDERED: traZODone 50 MG TABLET PO PRN (18:57)
[2019-07-28] MEDS: Ipratropium/Albuterol Neb 3 ML IH SCH ×4 (04:03→23:23)
[2019-07-28] MEDS: MethylPREDNISolone 40 MG/ML VIAL IVP SCH ×3 (05:04→18:26)
[2019-07-28 07:46] LABS: Basophils % 0.1 %; Immature Granulocytes % 0.7 % (0-4); Lymphocytes # 0.8 K/mcL (0.6-4.6); Lymphocytes % 7.4 %; Mean Corpuscular HGB Conc 33.3 g/dL (31.6-35.5); Mean Corpuscular Hemoglobin 29.9 pg (28.0-33.3); Mean Corpuscular Volume 89.7 fL (83.0-100.0); Mean Platelet Volume 9.7 fL (9.4-12.4); Monocytes # 0.3 K/mcL (0.0-1.3); Monocytes % 2.4 %; Platelet Count 158 K/mcL (140-400); Red Blood Count 4.35 M/mcL (3.82-4.97); Red Cell Distribution Width 12.9 % (11.5-14.5); Segmented Neutrophils % 89.4 %; White Blood Count 11.2 K/mcL (4.3-11.1)
[2019-07-28 08:02] LABS: BUN/Creatinine Ratio 19 (6-26); Blood Urea Nitrogen 13 mg/dL (8-23); Calcium 8.8 mg/dL (8.6-10.3); Carbon Dioxide 24 mEq/L (23-29); Chloride 108 mEq/L (98-107); Glucose 152 mg/dL (70-105); Osmolality,Calculated 297 (280-300); Sodium 142 mEq/L (136-145); eGFR For African Americans > 60 (> 60); eGFR For Non-African Americans > 60 (> 60)
[2019-07-28] MEDS ORDERED: 0.9 % Sodium Chloride 1,000 ML IVC SCH (08:45)
[2019-07-28] MEDS: Isosorbide MONOnitrate (24 HR) 60 MG TAB.ER.24H PO SCH (08:56)
[2019-07-28] MEDS: Aspirin Enteric Coated 81 MG Tablet PO SCH (08:57)
[2019-07-28] MEDS: amLODIPine 5 MG TABLET PO SCH (08:57)
[2019-07-28] MEDS: *HR* Enoxaparin 40 MG/0.4 ML SYRINGE SQ SCH (09:11)
[2019-07-28] MEDS: cefTRIAXone 2,000 MG in Water for inj. (sterile) 20 ML IVP SCH (18:26)
[2019-07-29] MEDS: MethylPREDNISolone 40 MG/ML VIAL IVP SCH ×5 (00:28→23:33)
[2019-07-29] MEDS: Ipratropium/Albuterol Neb 3 ML IH SCH ×4 (04:46→22:06)
[2019-07-29 05:33] LABS: Basophils % 0.1 %; Hematocrit 37.6 % (35.3-44.9); Hemoglobin 12.5 g/dL (11.5-15.4); Lymphocytes # 0.7 K/mcL (0.6-4.6); Lymphocytes % 5.7 %; Mean Corpuscular HGB Conc 33.2 g/dL (31.6-35.5); Mean Corpuscular Hemoglobin 30.1 pg (28.0-33.3); Mean Corpuscular Volume 90.6 fL (83.0-100.0); Mean Platelet Volume 10.3 fL (9.4-12.4); Monocytes # 0.2 K/mcL (0.0-1.3); Monocytes % 1.6 %; Neutrophils # 10.6 K/mcL (1.6-8.9); Platelet Count 172 K/mcL (140-400); Red Blood Count 4.15 M/mcL (3.82-4.97); Segmented Neutrophils % 91.6 %; White Blood Count 11.6 K/mcL (4.3-11.1)
[2019-07-29 05:51] LABS: Alanine Aminotransferase 24 Units/L (7-52); Albumin 3.6 g/dL (3.5-5.7); Albumin/Globulin Ratio 1.4 (1.1-2.2); Alkaline Phosphatase 56 Units/L (34-104); Aspartate Amino Transferase 25 Units/L (13-39); BUN/Creatinine Ratio 21 (6-26); Bilirubin,Total 0.2 mg/dL (0.3-1.0); Blood Urea Nitrogen 16 mg/dL (8-23); Calcium 8.5 mg/dL (8.6-10.3); Carbon Dioxide 22 mEq/L (23-29); Chloride 107 mEq/L (98-107); Globulin 2.5 g/dL (2.4-3.5); Glucose 201 mg/dL (70-105); Osmolality,Calculated 299 (280-300); Potassium 3.5 mEq/L (3.5-5.1); Sodium 141 mEq/L (136-145); Total Protein 6.1 g/dL (6.4-8.9); eGFR For African Americans > 60 (> 60); eGFR For Non-African Americans > 60 (> 60)
[2019-07-29] MEDS: *HR* Enoxaparin 40 MG/0.4 ML SYRINGE SQ SCH (05:57)
[2019-07-29] MEDS: Aspirin Enteric Coated 81 MG Tablet PO SCH (09:07)
[2019-07-29] MEDS: amLODIPine 5 MG TABLET PO SCH (09:07)
[2019-07-29] MEDS: Isosorbide MONOnitrate (24 HR) 60 MG TAB.ER.24H PO SCH (09:07)
[2019-07-29] MEDS ORDERED: 0.9 % Sodium Chloride 1,000 ML IVC SCH (11:30)
[2019-07-29] MEDS: Azithromycin 500 MG in 0.9 % Sodium Chloride 250 ML IVPB SCH (11:43)
[2019-07-29] MEDS: cefTRIAXone 2,000 MG in Water for inj. (sterile) 20 ML IVP SCH (19:59)
[2019-07-30] MEDS: Ipratropium/Albuterol Neb 3 ML IH SCH (05:06)
[2019-07-30] MEDS: MethylPREDNISolone 40 MG/ML VIAL IVP SCH (05:07)
[2019-07-30] MEDS: *HR* Enoxaparin 40 MG/0.4 ML SYRINGE SQ SCH (05:07)
[2019-07-30 06:10] LABS: Hematocrit 38.2 % (35.3-44.9); Hemoglobin 12.9 g/dL (11.5-15.4); Mean Corpuscular HGB Conc 33.8 g/dL (31.6-35.5); Mean Corpuscular Hemoglobin 30.3 pg (28.0-33.3); Mean Corpuscular Volume 89.7 fL (83.0-100.0); Mean Platelet Volume 10.1 fL (9.4-12.4); Platelet Count 173 K/mcL (140-400); Red Blood Count 4.26 M/mcL (3.82-4.97); White Blood Count 6.5 K/mcL (4.3-11.1)
[2019-07-30 06:29] LABS: BUN/Creatinine Ratio 20 (6-26); Blood Urea Nitrogen 13 mg/dL (8-23); Calcium 8.5 mg/dL (8.6-10.3); Carbon Dioxide 26 mEq/L (23-29); Chloride 107 mEq/L (98-107); Glucose 168 mg/dL (70-105); Osmolality,Calculated 298 (280-300); Potassium 3.4 mEq/L (3.5-5.1); Sodium 142 mEq/L (136-145); eGFR For African Americans > 60 (> 60); eGFR For Non-African Americans > 60 (> 60)
[2019-07-30] MEDS ORDERED: Potassium Chloride Elixir 20 MEQ/15 ML UDC PO ONE (07:43)
[2019-07-30] MEDS ORDERED: predniSONE 20 MG TABLET PO SCH (08:00)
[2019-07-30] MEDS: Isosorbide MONOnitrate (24 HR) 60 MG TAB.ER.24H PO SCH (08:47)
[2019-07-30] MEDS: Aspirin Enteric Coated 81 MG Tablet PO SCH (08:47)
[2019-07-30] MEDS: amLODIPine 5 MG TABLET PO SCH (08:48)
[2019-07-30] MEDS ORDERED: 0.9 % Sodium Chloride 500 ML IVC ONE (11:09)
[2019-07-30] MEDS: Azithromycin 500 MG in 0.9 % Sodium Chloride 250 ML IVPB SCH (11:55)
[2019-07-30] MEDS: 0.9 % Sodium Chloride 1,000 ML IVC SCH ×2 (13:40→20:26)
[2019-07-30] MEDS: cefTRIAXone 2,000 MG in Water for inj. (sterile) 20 ML IVP SCH (17:32)
[2019-07-31] MEDS: *HR* Enoxaparin 40 MG/0.4 ML SYRINGE SQ SCH (06:19)
[2019-07-31 06:59] VITALS: BP 176/78
[2019-07-31] MEDS: 0.9 % Sodium Chloride 1,000 ML IVC SCH ×2 (07:29→12:45)
[2019-07-31] MEDS: Isosorbide MONOnitrate (24 HR) 60 MG TAB.ER.24H PO SCH (08:35)
[2019-07-31] MEDS: Aspirin Enteric Coated 81 MG Tablet PO SCH (08:37)
[2019-07-31] MEDS: amLODIPine 5 MG TABLET PO SCH (08:37)
[2019-07-31] MEDS ORDERED: predniSONE 20 MG TABLET PO SCH (09:00)
== END 2019-07-31 14:58 | disposition home health service (06) | DRG 871 ==
LOC: EMEROOPIK 13:20 → INPPIK 13:20
PROVIDERS: ADMIT Family Medicine; ATTEND Family Medicine